=== PATIENT | female | born 1995 | race American Indian/Alaskan Native ===

== ENCOUNTER 2020-09-04 20:27 | Emergency (ER) | payer OTHER, BC ==
[2020-09-04 20:57] VITALS: BP 110/70
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
--- NOTE | 2020-09-06 10:38 | Electrocardiograph Report ---
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
== END 2020-09-04 22:40 | disposition home or self-care (01) ==
LOC: ED 20:27
DX: M94.0 Chondrocostal junction syndrome [Tietze] (principal); Z79.899 Other long term (current) drug therapy; V49.49XA Driver injured in collision with other motor vehicles in traffic accident, initial encounter; Y92.410 Unspecified street and highway as the place of occurrence of the external cause; Y93.89 Activity, other specified; Y99.8 Other external cause status
CPT/HCPCS: 71046; 93005